=== PATIENT | female | born 1950 | race Caucasian/White ===

== ENCOUNTER → 2017-08-06 | Outpatient (CLI) | payer MEDICARE, OTHER ==
[~2017-08-06] MED LIST: GLUCOPHAGE1000 MG PO; KEPPRA 500MG500 MG PO; LAMICTAL150 MG PO; LEVEMIR100 U/ML SC; NO HOME MEDICATIONS; NOVOLOG 100U100 U/M1 SC; ZOCOR 20MG20 MG PO
== END ==
LOC: MC.RAD 11:20
DX: Z12.31 Encounter for screening mammogram for malignant neoplasm of breast (principal)

== ENCOUNTER → 2020-02-26 | Outpatient (CLI) | payer MEDICARE, OTHER | LOC: MC.RAD 09:59 | DX: N63.12 Unspecified lump in the right breast, upper inner quadrant (principal); N63.20 Unspecified lump in the left breast, unspecified quadrant ==

== ENCOUNTER 2020-06-30 15:00 | Outpatient (RCR) | payer MEDICARE, OTHER ==
[2020-06-09 15:31] VITALS: BP 122/67; PULSE 65; TEMP 98.4
[~2020-06-30] VITALS: Ht 157.5 cm; Wt 53.0 kg
[~2020-06-30 15:00] MED LIST changes: +CALTRATE-600 W600 MG PO; +COMPAZINE 110 MG/TAB PO; +DECADRON 4MG TAB4 MG PO; +GLUCOPHAGE XR500 M1 PO; +LAMICTAL 100MG100 MG PO; +NOVOLOG FLEX100 U/ML SQ; +PRILOSEC 20MG20 MG PO; +TRESIBA FL100 UNIT/1 SQ; +TYLENOL 325MG325 MG PO; +ZOFRAN 4MG T4 MG/TAB PO
[2020-06-30 15:19] VITALS: BP 128/73; PULSE 63; TEMP 98.5
[2020-07-21 13:05] VITALS: BP 135/72; PULSE 73; TEMP 98
--- NOTE | 2020-07-21 13:14 | NUR ---
Per pt report today is her last injection.
== END 2020-07-21 13:14 | disposition home or self-care (01) ==
LOC: EUO 15:00
DX: Z51.11 Encounter for antineoplastic chemotherapy (principal); Z79.899 Other long term (current) drug therapy
CPT/HCPCS: Q5120